=== PATIENT | female | born 1975 | race Caucasian/White ===

== ENCOUNTER 2021-09-19 18:21 | Emergency (ER) | payer MEDICAID ==
[~2021-09-19] VITALS: Ht 157.5 cm; Wt 63.5 kg
[2021-09-19 18:38] VITALS: BP_SYST 111
[2021-09-19] MEDS ORDERED: IPRATROPIUM/ALBUTEROL SULFATE 3 ML AMPUL.NEB (DUONEB) INH ONE ×2 (20:30→21:00)
[2021-09-19] MEDS ORDERED: methylPREDNISolone SOD SUCC/PF 62.5 MG/ML VIAL IVP ONE (20:30)
[2021-09-19] MEDS ORDERED: guaiFENesin 200 MG/10 ML UDC PO ONE (21:00)
[2021-09-19] MEDS ORDERED: PRED20TA PO (21:00)
[2021-09-19] MEDS ORDERED: predniSONE 20 MG TABLET PO ONE (21:00)
[2021-09-19] MEDS ORDERED: BENZ100C92 PO (21:00)
[2021-09-19] MEDS ORDERED: CETI1TAB2 PO (21:00)
[2021-09-19] MEDS ORDERED: GUAI-723 PO (21:00)
[2021-09-19 21:47] VITALS: BP_SYST 112
== END 2021-09-19 21:47 | disposition home or self-care (01) ==
LOC: SED 18:21
DX: J20.9 Acute bronchitis, unspecified (principal); U09.9 Post COVID-19 condition, unspecified
CPT/HCPCS: 71046; 94640; 99283; J7512